=== PATIENT | female | born 1950 | race Caucasian/White ===

== ENCOUNTER 2021-11-22 08:43 | Outpatient (RCR) | payer MEDICARE, MEDICAID, SELFPAY ==
[2021-11-22] MEDS: FAMOTIDINE 20 MG TABLET PO (12:38)
[2021-11-22] MEDS: diphenhydrAMINE HCl CAP 25 MG CAPSULE PO (12:38)
[2021-11-22] MEDS: ACETAMINOPHEN 325 MG TABLET 650 MG PO (12:38)
[2021-11-22 12:43] VITALS: BP 125/66; PULSE 72; RESP 24; TEMP 35.7; O2SAT 100
[2021-11-22 14:14] VITALS: BP 118/64; PULSE 59; O2SAT 97
== END 2021-11-22 16:00 | disposition home or self-care (01) ==
LOC: AMCINF 08:43
PROVIDERS: PCP Family Medicine; Visit Provider Internal Medicine Hematology & Oncology
DX: U07.1 COVID-19 (principal); I10 Essential (primary) hypertension; I25.10 Atherosclerotic heart disease of native coronary artery without angina pectoris; E11.9 Type 2 diabetes mellitus without complications
CPT/HCPCS: A9270; M0247; Q0247